=== PATIENT | male | born 1985 | race Caucasian/White ===

== ENCOUNTER 2017-06-22 20:57 | Emergency (ER) | payer BC, OTHER ==
[~2017-06-22] VITALS: Ht 190.5 cm; Wt 104.3 kg
[2017-06-22] MEDS ORDERED: CATHETER FLUSH 10 ML SYR IV ONE (21:00)
[2017-06-22] MEDS ORDERED: SODIUM BICARB 8.4% 50 MEQ/50 ML (ABBOTT) SYR INJ ONE (21:00)
[2017-06-22] MEDS ORDERED: EPINEPHrine INJECTION 1 MG/ML AMP IV ONE (21:00)
[2017-06-22] MEDS ORDERED: DOPamine DRIP 250 ML IV ONE (21:00)
[2017-06-22] MEDS ORDERED: ETOMIDATE IV SOLN 20 MG/10 ML VIAL IV ONE (21:00)
[2017-06-22] MEDS ORDERED: NS (IVPB) 250 ML IV ONE (21:00)
[2017-06-22] MEDS ORDERED: SUCCINYLCHOLINE INJ 100 MG/5 ML SYR INJ ONE (21:00)
[2017-06-22] MEDS ORDERED: ONDANSETRON 4 MG/2 ML (SDV) Z0FRAN IVP ONE (21:45)
[2017-06-22] MEDS ORDERED: ACETAMINOPHEN 500 MG TAB (TYLENOL) PO ONE (21:45)
[2017-06-22] MEDS ORDERED: NS IV 1000 ML 3,000 ML IV PRN (21:45)
--- NOTE | 2017-06-22 21:54 | ED General ---
General Stated Complaint: VOMITING Source of Information: Patient, Other (girlfriend) Exam Limitations: No Limitations (MIKEL KAPLAN) History of Present Illness Date Seen by Provider: Jun 22, 2017 Time Seen by Provider: 21:40 Initial Comments Patient presents to ER by private conveyance with a chief complaint for about a day now he has experienced nausea vomiting diarrhea and progressively feeling weaker. He said chills and fever with a high 102.9. He went to urgent care this morning they swabbed him and said his flu swab was negative. They put him on doxycycline he is gone at all up not been able to keep down. She's having generalized abdominal pain especially in the epigastric region worse after vomiting. He's had no blood in the vomitus or diarrhea. He has no other history of trauma. No significant medical history and does not take any medications routinely. He has had his spleen taken out after became rupture after a case of mono. He has an allergy to amoxicillin but is not sure what happens when he takes it doesn't happen when he was very young child and does not remember. (MIKEL KAPLAN) Allergies and Home Medications Allergies Coded Allergies: amoxicillin (Verified Allergy, Unknown, 06/22/17) Patient Home Medication List Home Medication List Reviewed: Yes (MKIEL KAPLAN) Constitutional: chills, diaphoresis, dizziness, fever, malaise, weakness EENTM: No ear discharge, No hearing loss, No ear pain Respiratory: No cough, No dyspnea on exertion, No phlegm, No wheezing Cardiovascular: No chest pain, No edema, No palpitations Gastrointestinal: No abdominal pain, No constipation, No diarrhea, No vomiting Genitourinary: No discharge, No dysuria Musculoskeletal: No back pain, No joint pain Skin: No pruritus, No rash Psychiatric/Neurological: Denies Headache, Denies Numbness, Denies Paresthesia (MIKEL KAPLAN) Past Xbwvngn-Mdnjpt-Cpuzrs Hx Patient Social History Alcohol Use: Occasionally Uses Alcohol Beverage of Choice: Beer Recreational Drug Use: No Smoking Status: Never a Smoker Recent Foreign Travel: No Contact w/Someone Who Travel: No (MIKEL KAPLAN) Physical Exam-Suspected Sepsis Physical Exam Vital Signs Vital Signs - First Documented 06/22/17 21:30 Temp 97.5 Pulse 120 Resp 30 B/P (MAP) 77/54 (62) Pulse Ox 98 O2 Delivery Room 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,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) Vital Signs Capillary Refill : (MIKEL KAPLAN) General Appearance: WD/WN, Mild Distress Eyes: Bilateral Eye Normal Inspection, Bilateral Eye PERRL, Bilateral Eye EOMI HEENT: PERRL/EOMI, TMs Normal, Normal ENT Inspection, Pharynx Normal Neck: Full Range of Motion (pharyngeal membranes are dry), Normal Inspection, Non Tender, Supple Respiratory: Chest Non Tender, Lungs Clear, Normal Breath Sounds, No Accessory Muscle Use, No Respiratory Distress Cardiovascular: Regular Rate, Rhythm, No Edema, Normal Peripheral Pulses, Tachycardia (120) Gastrointestinal: Normal Bowel Sounds, No Organomegaly, Soft, Tenderness ( generalized) Extremity: Normal Capillary Refill, Normal Inspection, Non Tender, No Calf Tenderness, No Pedal Edema Neurologic/Psychiatric: Alert, Oriented x3, No Motor/Sensory Deficits Skin: cyanosis, diaphoresis (MIKEL KAPLAN) Focused Exam Evaluation Lactate Level Laboratory Tests 06/22/17 00:00: (ELIER MEDINA APRN) Lumen: triple Central Line Procedure: betadine prep, sterile drapes applied, sterile dressing applied Position: internal jugular (R) Anesthesia: Lidocaine Volume Anesthetic (ccs): 3 Complications: none Post Position: sutured, good blood return, position confirmed w/ CXR Progress Cleaned with surgical scrub, draped sterilely, ultrasound probe covered with sterile probe cover, internal jugular vein identified very collapsible with even light pressure. This was then cannulated with a 7 Nepali triple lumen catheter to a depth of 16 cm with good blood return. (ELIER MEDINA APRN) Progress/Results/Core Measures Suspected Sepsis SIRS Temperature: Pulse: Respiratory Rate: Laboratory Tests 06/22/17 21:40: White Blood Count 6.8 Blood Pressure / Mean: Laboratory Tests 06/22/17 23:24: Lactic Acid Level 11.82*H Laboratory Tests 06/22/17 21:40: Creatinine 2.80H, INR Comment 3.2H, Platelet Count 37*L, Total Bilirubin 1.3H (MIKEL KAPLAN) Results/Orders Lab Results Laboratory Tests Test 06/22/17 00:00 06/22/17 21:40 06/22/17 22:34 Range/Units White Blood Count 6.8 4.3-11.0 10^3/uL Red Blood Count 5.49 4.35-5.85 10^6/uL Hemoglobin 16.6 13.3-17.7 G/DL Hematocrit 51 40-54 % Mean Corpuscular Volume 93 80-99 FL Mean Corpuscular Hemoglobin 30 25-34 PG Mean Corpuscular Hemoglobin Concent 32 32-36 G/DL Red Cell Distribution Width 15.5 H 10.0-14.5 % Platelet Count 37 *L 130-400 10^3/uL Mean Platelet Volume 12.3 H 7.4-10.4 FL Neutrophils (%) (Auto) 86 H 42-75 % Lymphocytes (%) (Auto) 11 L 12-44 % Monocytes (%) (Auto) 3 0-12 % Eosinophils (%) (Auto) 0 0-10 % Basophils (%) (Auto) 0 0-10 % Neutrophils # (Auto) 5.8 1.8-7.8 X 10^3 Lymphocytes # (Auto) 0.7 L 1.0-4.0 X 10^3 Monocytes # (Auto) 0.2 0.0-1.0 X 10^3 Eosinophils # (Auto) 0.0 0.0-0.3 10^3/uL Basophils # (Auto) 0.0 0.0-0.1 10^3/uL Prothrombin Time 32.3 H 12.2-14.7 SEC INR Comment 3.2 H 0.8-1.4 Activated Partial Thromboplast Time > 200 *H 24-35 SEC Sodium Level 139 135-145 MMOL/L Potassium Level 3.4 L 3.6-5.0 MMOL/L Chloride Level 105 98-107 MMOL/L Carbon Dioxide Level 11 L 21-32 MMOL/L Anion Gap 23 H 5-14 MMOL/L Blood Urea Nitrogen 20 H 7-18 MG/DL Creatinine 2.80 H 0.60-1.30 MG/DL Estimat Glomerular Filtration Rate 26 BUN/Creatinine Ratio 7 Glucose Level 95 70-105 MG/DL Calcium Level 8.3 L 8.5-10.1 MG/DL Phosphorus Level 4.7 2.3-4.7 MG/DL Magnesium Level 1.6 L 1.8-2.4 MG/DL Total Bilirubin 1.3 H 0.1-1.0 MG/DL Aspartate Amino Transf (AST/SGOT) 32 5-34 U/L Alanine Aminotransferase (ALT/SGPT) 31 0-55 U/L Alkaline Phosphatase 112 40-136 U/L Troponin I 0.86 *H <0.30 NG/ML Total Protein 7.9 6.4-8.2 GM/DL Albumin 3.4 3.2-4.5 GM/DL Monoscreen NEGATIVE NEGATIVE Group A Streptococcus Screen NEGATIVE NEGATIVE (ELIER MEDINA APRN) Micro Results Microbiology 06/22/17 Influenza Types A,B Antigen (JOHN) - Final, Complete (ELIER MEDINA APRN) Medications Given in ED Current Medications Medications Dose Ordered Sig/Jimy Route Start Time Stop Time Status Last Admin Dose Admin Ondansetron HCl 4 mg ONCE ONCE IVP 06/22/17 21:45 06/22/17 21:47 DC 06/22/17 21:56 4 MG Sodium Chloride 3,000 ml @ 3,000 mls/hr PRN PRN IV 06/22/17 21:45 06/22/17 21:57 3,000 MLS/HR (ELIER MEDINA APRN) Vital Signs/I&O Vital Sign - Last 12Hours 06/22/17 21:30 Temp 97.5 Pulse 120 Resp 30 B/P (MAP) 77/54 (62) Pulse Ox 98 O2 Delivery Room Air (ELIER MEDINA APRN) Vital Signs/I&O Capillary Refill : (MIKEL KAPLAN) Progress Note #1: Time: 21:51 Progress Note Septic panel. Patient has GI symptoms is tachycardic with a lower end blood pressure was initially in the 70s on repeating was 101 so not quite shock but he certainly appears clinically dehydrated due to Hypovolemia. Since he has a previous allergy to amoxicillin we will choose Levaquin to cover a GI source. 2220: Platelets are 37,000 no obvious source of bleeding or reason for DIC. I' ve asked lab to do a manual differential to see if platelets are clumping. Progress Note #2: Time: 22:47 Progress Note Micro called that the platelets are reduced but look ok, no clustering. There are a multitude of Gram Pos Dipplococcus present. Will add vanc and Cefepime. Getting central line and will start levophed. Septic Shock and MSOF concern for N. menegitidis. Isolation for droplets. Progress Note #3: Time: 05:43 Progress Note 2315: Lino left for Xfer 2340: CIPRIANO Rocha: Dr Long ICU discussed case lab imaging findings of septic shock with him soft and she agrees to accept the patient. We are faxing a facesheet and then we'll get a bed number. Called [facility] and THEY ARE ON STANDBY. (MIKEL KAPLAN) ECG Initial ECG Impression Date: Jun 22, 2017 Initial ECG Impression Time: : Initial ECG Rate: 109 Initial ECG Rhythm: S.Tach Initial ECG Intervals: Normal Initial ECG Impression: Normal (sinus tachycardia) Initial ECG Comparisson: No Previous ECG Available Comment Sinus tach. Without ST segment elevation or depression. EKG : EKG Time: 00:26 Rate: 129 Rhythm: S.Tach Intervals: Normal ECG Comparisson: Unchanged ECG Impression: Nonspecific Changes Comment No consistent ST segment elevation or depression across contiguous leads. There are P waves present. (MIKEL KAPLAN) Diagnostic Imaging Diagonstic Imaging: Xray Plain Films/CT/US/NM/MRI: chest Comments Some atelectasis seen in the middle and lower right lobe. Reviewed: Reviewed by Me Diagonstic Imaging: Xray Plain Films/CT/US/NM/MRI: chest Comments Lung appearance unchanged. Heart shadow unremarkable. There is an ET tube in the trachea is getting up to 3 cm above the trace in good position. There is an OG tube over the stomach shadow. Reviewed: Reviewed by Me (MIKEL KAPLAN) Critical Care Note Critical Care Start Time: 00:24 Stop Time: 02:31 Total Time (minutes) 127 Date of : Jun 23, 2017 Time of : 02:31 Progress Patient presents to the ER diaphoretic, pale and initial laboratory demonstrated liver, kidney failure as well as Darvocet opinion. Patient does not have any evidence of bleeding so Platelets were not ordered and then at that time the patient started having worsening respiratory difficulty. Early x- ray showed interstitial fluid accumulation so we discussed the risks benefits and alternatives to doing a elective intubation as his respiratory status was not improving with oxygenation. His sats were okay. Using succinylcholine and etomidate because his potassium was actually on the low end we preoxygenated, physician, sedated and then paralyzed him. Using a 4 Carmela laryngoscope and an 8.0 ET tube we easily saw the vocal cords and place the ET tube watching ago across the vocal cords. The cuff was inflated and he followed the tube on the first breath was given as well as there was good colorimetric change on the capnography paper. We started him on a propofol drip briefly but then discontinued it as we lost pulse and did one round of good CPR gave her a milligram of epinephrine and got his pulse back. Had him on Levophed and had developed a maximum. Central line was already placed an IV fluids were running at flush. IV cefepime was already in and vancomycin was still running in. EKG was obtained that did not show any critical ST segment elevation or depression. We got him accepted to the ICU at [facility] [place] and had a blood pressure 101-110 systolic. [facility] was already on standby and only got a bed they were on their way. When they got here we lost pulses again and we pushed epinephrine, bicarbonate and started the epinephrine drip already. By the time [facility] was here we worked on the patient had a return of spontaneous circulation in the end -tidal CO2 of 26 as well as systolic blood pressure in the 70-80 range at best. Moved epinephrine up to maximum and added vasopressin at maximum as well as dopamine. We'll call for limnologist going at maximum inotrope, chronotrope, and vasopressors we were able to maintain a blood pressure in the 60s to 70s. We then got the patient loaded on the cart out to the helicopter hand in the helicopter before he coded again we worked him for 2 rounds CPR and then decided to move him back into the ER were we gave him a second dose of bicarbonate and get her spontaneous return of circulation. Several small pushed doses of epinephrine to help maintain blood pressure. End-tidal CO2 at this point was 8 pulse was very weak and only palpable using a Doppler of the carotid. During the last round of CPR we also had to rhythm checks demonstrating asystole. Throughout this the nursing supervisor metal furniture assembly as well as myself and updated the family multiple times. We get the patient back to the helicopter and as you're getting ready to load him on the helicopter we lost her pulse and end-tidal CO2 went back down to 0. We resumed CPR did one round with epinephrine and had asystole on the monitor so we brought him back and inside and continued CPR. At this time we done over 42 minutes of collective CPR over 4 episodes and we were doing very good quality CPR and getting no end- tidal CO2 reading at this time. Reevaluated and he had good equal breath sounds. We reevaluated all of his IV lines and had all four pressors going at maximum. We had IV fluids running and third central line flush on a pressure bag. We were not getting any return of circulation. The vasopressors were working as the patient's extremities were clamped down, blue and cold. We discussed at length with the family that the chances of a meaningful neurologic recovery were very quickly dwindling and we were multiple times now unsuccessful to even get the patient to the helicopter let alone on the helicopter. Even if we could get him to the ICU there was a very slim chance for meaningful neurologic recovery given the fact that he walked into the ER in multisystem organ failure. We have given a platelet pack because he was having some bloody secretions coming up around his tube. It was evident early on that the patient was in DIC. At this time family agreed to discontinue resuscitative efforts. At that time the end-tidal CO2 was 0 and the patient had no spontaneous movement of his heart on ultrasound and asystole on the monitor. We discontinued CPR. (MIKEL KAPLAN) Departure Impression Impression: Primary Impression: Septic shock Additional Impressions: Multisystem organ failure Asplenia after surgical procedure Cardiopulmonary arrest Thrombocytopenia Disposition: 20 Condition: Departure-Patient Inst. Referrals: NO,LOCAL PHYSICIAN (PCP) Primary Care Physician MIKEL KAPLAN Jun 22, 2017 21:54 ELIER MEDINA APRN Jun 22, 2017 23:08
[2017-06-22] MEDS ORDERED: LEVOFLOXACIN 750 MG/150 ML IV 150 ML IV ONE (22:00)
[2017-06-22] MEDS ORDERED: fentaNYL INJECTION 100 MCG/2 ML AMP IVP ONE (22:00)
[2017-06-22 22:10] LABS: BASOPHILS % (AUTO) 0 % (0-10); EOSINOPHILS % (AUTO) 0 % (0-10); HEMATOCRIT 51 % (40-54); HEMOGLOBIN 16.6 G/DL (13.3-17.7); LYMPHOCYTES # (AUTO) 0.7 X 10^3 (1.0-4.0); LYMPHOCYTES % (AUTO) 11 % (12-44); MEAN CORPUSCULAR HEMOGLOBIN 30 PG (25-34); MEAN CORPUSCULAR HGB CONC 32 G/DL (32-36); MEAN CORPUSCULAR VOLUME 93 FL (80-99); MEAN PLATELET VOLUME 12.3 FL (7.4-10.4); MONOCYTES # (AUTO) 0.2 X 10^3 (0.0-1.0); MONOCYTES % (AUTO) 3 % (0-12); NEUTROPHILS # (AUTO) 5.8 X 10^3 (1.8-7.8); NEUTROPHILS % (AUTO) 86 % (42-75); RED BLOOD COUNT 5.49 10^6/uL (4.35-5.85); RED CELL DISTRIBUTION WIDTH 15.5 % (10.0-14.5); WHITE BLOOD COUNT 6.8 10^3/uL (4.3-11.0)
[2017-06-22 22:12] LABS: INR 3.2 (0.8-1.4); PLATELET COUNT 37 10^3/uL (130-400); PROTHROMBIN TIME PATIENT 32.3 SEC (12.2-14.7)
[2017-06-22 22:26] LABS: ALBUMIN 3.4 GM/DL (3.2-4.5); BILIRUBIN,TOTAL 1.3 MG/DL (0.1-1.0); CALCIUM 8.3 MG/DL (8.5-10.1); CREATININE SERUM 2.8 MG/DL (0.60-1.30); MAGNESIUM 1.6 MG/DL (1.8-2.4); PHOSPHORUS 4.7 MG/DL (2.3-4.7); POTASSIUM 3.4 MMOL/L (3.6-5.0); TOTAL PROTEIN 7.9 GM/DL (6.4-8.2)
[2017-06-22 22:27] LABS: PARTIAL THROMBOPLASTIN TIME > 200 SEC (24-35)
[2017-06-22] MEDS ORDERED: NOREPINEPHRINE 4 MG in NS (IVPB) 250 ML IV SCH (22:45)
[2017-06-22] MEDS ORDERED: MAGNESIUM 1 GM/100 ML IVPB 100 ML IV ONE (22:45)
[2017-06-22] MEDS ORDERED: POTASSIUM CL 10MEQ/50ML IVPB 50 ML IV ONE (22:45)
[2017-06-22] MEDS ORDERED: VANCOMYCIN INJECTION 2,000 MG in NS IV 500 ML 500 ML IV STA (22:46)
[2017-06-22] MEDS ORDERED: VANCOMYCIN 1000 MG/VIAL ONE (22:49)
[2017-06-22] MEDS ORDERED: NS (IVPB) 250 ML ONE (22:50)
[2017-06-22] MEDS ORDERED: NS IV 500 ML 500 ML ONE (22:51)
[2017-06-22] MEDS ORDERED: NOREPINEPHRINE 4 MG/4 ML (LEVOPHED) AMP IV ONE (22:51)
[2017-06-22] MEDS ORDERED: CEFEPIME INJECTION 2,000 MG in NS (IVPB) 100 ML IV ONE (23:00)
[2017-06-22 23:53] LABS: BILIRUBIN,URINE NEGATIVE (NEGATIVE); CLARITY,URINE CLEAR; COLOR,URINE YELLOW; GLUCOSE, URINE (UA) NEGATIVE (NEGATIVE); KETONES,URINE NEGATIVE (NEGATIVE); LEUKOCYTE ESTERASE ,URINE 1+ (NEGATIVE); NITRITE,URINE NEGATIVE (NEGATIVE); PH,URINE 5 (5-9); PROTEIN,URINE 2+ (NEGATIVE); UROBILINOGEN,URINE NORMAL (NORMAL)
[2017-06-23 00:06] LABS: AMPHETAMINE SCREEN, URINE NEGATIVE (NEGATIVE); BACTERIA,URINE NEGATIVE /HPF; BARBITURATE SCREEN URINE NEGATIVE (NEGATIVE); BENZODIAZEPINES SCREEN URINE NEGATIVE (NEGATIVE); CANNABINOID SCREEN, URINE NEGATIVE (NEGATIVE); COCAINE SCREEN URINE NEGATIVE (NEGATIVE); METHADONE STAT NEGATIVE (NEGATIVE); METHAMPHETAMINE SCREEN URINE S NEGATIVE (NEGATIVE); OPIATE SCREEN URINE NEGATIVE (NEGATIVE); OXYCODONE STAT NEGATIVE (NEGATIVE); PROPOXYPHENE STAT NEGATIVE (NEGATIVE); RBC,URINE RARE /HPF; SQUAMOUS EPITHELIAL CELL,UR 0-2 /HPF; TRICYCLIC ANTIDEPRESSANTS SCRE NEGATIVE (NEGATIVE); WBC,URINE RARE /HPF
[2017-06-23] MEDS ORDERED: PROPOFOL DRIP (ICU) 100 ML IV ONE (00:07)
[2017-06-23] MEDS ORDERED: RT-ALBUTEROL/IPRATROPIUM 3 ML (DUONEB) VIAL ONE (00:33)
[2017-06-23] MEDS ORDERED: EPINEPHrine 1 MG INJECTION 2 MG in NS (IVPB) 248 ML IV SCH (00:45)
[2017-06-23] MEDS ORDERED: NS IV 500 ML 500 ML ONE (01:10)
[2017-06-23] MEDS ORDERED: VASOPRESSIN INJECTION 20 UNIT/ML VIAL ONE (01:30)
[2017-06-23] MEDS ORDERED: VASOPRESSIN IV SCH ×2 (01:30→05:45)
[2017-06-23] MEDS ORDERED: NS IV SCH ×2 (01:30→05:45)
[2017-06-23] MEDS ORDERED: NS (IVPB) 100 ML ONE (01:30)
[2017-06-23] MEDS ORDERED: fentaNYL INJECTION 100 MCG/2 ML AMP IVP ONE (05:15)
[2017-06-23] MEDS ORDERED: DOPamine DRIP 250 ML IV SCH (05:45)
[2017-06-23 06:16] VITALS: BP 0/0
--- NOTE | 2017-06-23 07:16 | Diagnostic Imaging Report ---
Indication: Intubated Comparison: 06/22/2017 Findings: Supine portable view of the chest is obtained. The patient is now intubated. Endotracheal tube is at the level of the head of the clavicles above the trace. There is a right IJ line tip of which appears to be in the mid superior vena cava and is unchanged. Nasogastric tube is now present in the stomach. Tip and side-port are beyond the gastroesophageal junction. Heart size and pulmonary vasculature appear unremarkable. There is no pneumothorax or pleural fluid suspected. There is some hazy ground glass opacities in the mid and lower lungs bilaterally concerning for some mild edema. Impression: 1. Endotracheal tube appears to be in good position at the level of the head of the clavicles. Nasogastric tube appears in the stomach. Right IJ line is unchanged. 2. Findings suggest mild diffuse edema. Dictated by: Dictated on workstation # [id number]
--- NOTE | 2017-06-23 07:22 | Diagnostic Imaging Report ---
Indication: Chills and weakness. Comparison: 08/26/10 Findings: Upright portable view of the chest is obtained. Heart size is normal. The pulmonary vessels appear unremarkable. There is no pneumothorax, mediastinal widening or pleural fluid suspected. No focal pneumonia is suspected. There is increased opacity in the mid and lower chest bilaterally which may be due to mild edema. The upper lungs appear clear. Impression: Findings suggestive of mild bilateral edema seen in the mid and lower lung zones. Dictated by: Dictated on workstation # [id number]
--- NOTE | 2017-06-23 07:30 | Diagnostic Imaging Report ---
INDICATION: Fever, emesis and central venous catheter evaluation. TIME: 2311 hours. FINDINGS: Since the study of earlier in the day, there has been placement of right jugular central venous catheter with tip reaching the mid superior vena cava. There does appear to be air trapping in the upper lobes with mild increased perihilar airspace disease, bilaterally. No pneumothorax is seen. IMPRESSION: Findings suggest mild worsening of perihilar edema without evidence of complication related to right jugular central venous catheter placement. Dictated by: Dictated on workstation # [id number]
== END 2017-06-23 06:16 | disposition expired ==
LOC: EDUNIT# 20:57 → ER 20:59
DX: A41.9 Sepsis, unspecified organism (principal); R65.21 Severe sepsis with septic shock; K72.00 Acute and subacute hepatic failure without coma; N17.9 Acute kidney failure, unspecified; I46.9 Cardiac arrest, cause unspecified; D72.829 Elevated white blood cell count, unspecified; Z88.1 Allergy status to other antibiotic agents; Z90.81 Acquired absence of spleen
CPT/HCPCS: 31500; 36415; 51702; 71045; 80053; 80306; 81000; 83605; 83735; 84100; 84484; 85025; 85610; 85730; 86308; 86900; 86901; 87040; 87077; 87430; 87804; 93005; 93041; 94640; 96365; 96375; 96376; 99291; 99292